=== PATIENT | male | born 1950 | race Caucasian/White ===

== ENCOUNTER 2023-04-08 15:26 | Outpatient (CLI) | payer MEDICARE | END 2023-04-08 15:27 | disposition home or self-care (01) | LOC: CSHMRI 15:26 | PROVIDERS: ATTEND Internal Medicine | DX: M54.50 Low back pain, unspecified (principal); G89.29 Other chronic pain; G62.9 Polyneuropathy, unspecified; M47.816 Spondylosis without myelopathy or radiculopathy, lumbar region | CPT/HCPCS: 72148 ==

== ENCOUNTER 2023-05-27 14:46 | Outpatient (CLI) | payer MEDICARE | END 2023-05-27 14:47 | disposition home or self-care (01) | LOC: CSHRAD 14:46 | PROVIDERS: ATTEND Nurse Practitioner | DX: R06.00 Dyspnea, unspecified (principal) | CPT/HCPCS: 71046 ==